=== PATIENT | male | born 2000 | race Hispanic/Latino ===

== ENCOUNTER 2020-12-14 12:38 | Emergency (ER) | payer OTHER, SELFPAY ==
[2020-12-14] MEDS ORDERED: Ibuprofen 200 MG TAB ONE (13:54)
[2020-12-14] MEDS ORDERED: Meclizine HCl 25 MG TAB ONE (13:54)
== END 2020-12-14 13:57 | disposition home or self-care (01) ==
LOC: CSHERS 12:38
DX: S09.90XA Unspecified injury of head, initial encounter (principal); W22.8XXA Striking against or struck by other objects, initial encounter
CPT/HCPCS: 70450